=== PATIENT | female | born 1945 | race Caucasian/White ===

== ENCOUNTER 2019-07-14 07:18 | Outpatient (CLI) | payer MEDICARE, BC ==
--- NOTE | 2019-07-14 08:55 | CT ---
CT ABDOMEN AND PELVIS WITHOUT IV CONTRAST: HISTORY: Epigastric pain COMPARISON: 08/13/2014 FINDINGS: Absence of IV contrast reduces the sensitivity of the exam particularly for the evaluation of solid o rgans. Oral contrast was administered. The lung bases are clear. No calcified gallstones are seen. No free air, free fluid or bowel obstruct ion is seen. The small bowel loops are not abnormally dilated. There is fecal material in the colon and rectum. A shunt catheter tubing is again noted. The patient is status post hysterectomy. An abnor mal appendix is not visualized. No calculi are seen in the kidneys, ureters or the urinary bladder. No hydroureteronephrosis is ident ified. There is a 18 mm left renal cyst. Vascular calcifications are present without evidence of aneurysmal dilatation of the abdominal aorta. There are degenerative changes in the spine. There is g rade 1 anterolisthesis of L4 over L5 vertebral bodies. IMPRESSION: No definite evidence of an acute process.
== END 2019-07-14 07:19 | disposition home or self-care (01) ==
LOC: CT 07:18
PROVIDERS: ATTEND Physician Assistant Medical
DX: K59.09 Other constipation (principal); R10.13 Epigastric pain
CPT/HCPCS: 74176

== ENCOUNTER 2019-12-29 12:45 | Outpatient (CLI) | payer MEDICARE, BC ==
--- NOTE | 2019-12-29 14:19 | CT ---
EXAM: CT brain without contrast HISTORY: Headaches. Prior surgery with possible shunt malfunction COMPARISON: MRI brain 11/13/2016 TECHNIQUE: Multiple contiguous axial images were obtained and a CT of the brain without contrast. FINDINGS: Postsurgical changes are seen in the left parietal calvarium. A ventriculostomy catheter is seen with its tip at the prior operative site. Encephalomalacia is seen at the operative site. No reaccumulation of the fluid collection is seen surrounding the shunt. There is no evidence of hydroce phalus, intracranial hemorrhage, or extra-axial fluid collection. The calvarium and overlying soft tissues are unremarkable. The visualized paranasal sinuses and masto id air cells are well aerated. IMPRESSION: Postsurgical changes as above without acute intracranial abnormality.
== END 2019-12-29 12:46 | disposition home or self-care (01) ==
LOC: TBSIIMAG 12:45
PROVIDERS: ATTEND Surgery
DX: T85.09XA Other mechanical complication of ventricular intracranial (communicating) shunt, initial encounter (principal); Z98.890 Other specified postprocedural states
CPT/HCPCS: 70450

== ENCOUNTER 2020-01-18 08:15 | Outpatient (CLI) | payer MEDICARE, BC ==
--- NOTE | 2020-01-18 10:32 | MRI ---
EXAM: Lumbar spine MRI without contrast. HISTORY: Low back pain, leg paresthesia COMPARISON: None FINDINGS: Multiplanar, multisequence MRI examination of the lumbar spine is performed. The conus medullaris region appears unremarkable. Tiny focus of probable type I endplate changes at L5 inferiorly. 2.3 cm circumscribed T2 hyperintense T1 hypointense focus in the left kidney, statistically a cyst. Generalized disc desiccation changes and ligament and facet hypertrophic changes. T12-L1 disc level: Unremarkable. L1-L2 disc level: Mild lateral recess stenosis, slightly worse on the left side. L2-L3 disc level: Mild bilateral recess and foraminal stenosis. L3-L4 disc level: Very mild lateral recess stenosis. L4-L5 disc level: Grade 1 anterolisthesis with associated annular fissure and moderate to severe cent ral canal and lateral recess and bilateral foraminal stenosis. L5-S1 disc level: Small annular fissure with very mild indention of the central thecal sac IMPRESSION: Multilevel variable severity canal, lateral recess, and foraminal stenosis, most marked, Grade 1 ante rolisthesis of L4-L5 with associated stenosis.
--- NOTE | 2020-01-18 11:17 | MRI ---
MRI cervical spine noncontrast: DATE: 01/18/2020 HISTORY: 74-year-old female with: R 26.89, balance problems R51, headache M 54.2, neck pain COMPARISON: 09/23/2016 FINDINGS: Vertebral body heights are maintained. No high-grade bone marrow signal abnormality. C1-2: No central stenosis. C2-3: Disc space maintained. Broad-based disc-osteophyte complex, left slightly greater than right. T hickened ligamentum flavum encroaches upon dorsal aspect of spinal canal, almost abutting the spinal cord, new since prior MRI. Mild central spinal canal stenosis. Mild right neural foraminal brenda nosis. Moderate left neural foraminal stenosis, new since prior MRI. Moderate right facet DJD. Moderate to severe left neural foraminal stenosis with facet osteophytes causing the left neural fora tamra stenosis. C3-4: Disc space maintained. No significant central stenosis. Ankylosis of right facet joint, unchang ed. Small bilateral uncinate process osteophytes. Mild bilateral neural foraminal stenosis. Mild left facet DJD. C4-5: Right facet joint incompletely imaged on sagittal sequences. Uncertain whether there is ankylos is or DJD there. Slight grade 1 anterolisthesis of C4 on C5. Essentially normal left facet joint. Small central focal disc-osteophyte complex slightly indents the ventral surface of spinal cord. Mild central stenosis. Small bilateral uncinate process osteophytes. Mild right neural foraminal stenosis. No left neural foraminal stenosis. Disc space maintained. C5-6: Endplate irregularity. At least mild disc space narrowing. Prominent broad-based disc-osteophyt e complex indents the ventral surface of spinal cord. Mildly thickened ligamentum flavum abuts the dorsal surface of spinal cord. Overall result is somewhat severe central spinal canal stenosis. Moder ate size bilateral uncinate process osteophytes causing severe right neural foraminal stenosis and moderate to severe left neural foraminal stenosis. Essentially normal facet joints. C6-7: Mild disc space narrowing. Broad-based disc/osteophyte complex abuts the ventral surface of spi nal cord. Thickened ligamentum flavum abuts the dorsal surface of spinal cord. Moderate to severe central spinal canal stenosis. Moderate size bilateral uncinate process osteophytes. Moderate to fabian re right neural foraminal stenosis. Mild left neural foraminal stenosis. C7-T1: Disc space maintained. No central or neural foraminal stenosis. No interval change in the size of the syrinx centered at T1 level with diameter of approximately 3 mm , tapering superiorly up to the level of C6-7, and inferiorly down to the T1-2 level. Not significantly changed. IMPRESSION: 1.) Cervical spondylosis, with high-grade central spinal canal stenosis with chronic mild cord imping ement at several levels, and several levels of high-grade neural foraminal stenosis, including severe. 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
--- NOTE | 2020-01-18 11:24 | RAD ---
EXAM: Lumbar spine 4 views including flexion and extension standing views. HISTORY: Low back pain, leg paresthesia, balance problems COMPARISON: 06/28/2015 FINDINGS: Bony demineralization. Postoperative changes at L4 and L5. A tube overlies the pelvis. This is stable from prior study. No evidence for acute fracture or dislocation involving the visualized spine. There are disc osteophytosis and facet arthrosis changes. Mild dextro scoliosis. Grade 1/2 anterolisthesis of L4 and L5 showing worsening with flexion relative to extension evidence for some instability. As much worse than prior exam. No evidence for a bone lesion. IMPRESSION: Spondylosis. Grade 1/2 anterolisthesis of L4 and L5 with worsening in flexion compared to extension evidence for instability. Postoperative changes at L4 and L5.
--- NOTE | 2020-01-18 11:30 | RAD ---
Exam: Cervical spine 5 views including flexion and extension lateral views: HISTORY: Headache, arachnoid cyst FINDINGS: The upper C2 odontoid and C1 are partially obscured on the AP open mouth views. C7-T1 is partially ob scured on the lateral views. There is diffuse bony demineralization. Extensive disc osteophytosis at C5-C6 and C6-C7 with facet arthrosis. No prevertebral soft tissue swelling. No evidence for abnorm al translation between flexion and extension. IMPRESSION: Extensive spondylosis. Bony demineralization. No abnormal translation between flexion and extension.
--- NOTE | 2020-01-18 11:32 | MRI ---
MRI thoracic spine noncontrast: DATE: 01/18/2020 HISTORY: 74-year-old female with ICD-10: R 26.89, balance problem R 20.2 leg paresthesia COMPARISON: 11/13/2016 FINDINGS: Again noted is the syrinx centered at T1, extending into the lower cervical spine superiorly, and tap ering down to the T2 level. The size of the syrinx has not significant changed. It is best visualized on the cervical spine MRI. The rest of the thoracic spinal cord is normal in size and sign al. There is mild and mild to moderate disc space narrowing at multiple levels, mostly in the midthoracic spine, where there are small, shallow disc-osteophyte complexes that encroach upon the ve ntral aspect of the spinal canal. These include central and right paracentral-lateral cord abutment at T6-7, central and bilateral paracentral, left greater than right, cord abutment at T8-9. Despite t hese, there is no high-grade central spinal canal stenosis at any level. No severe neural foraminal stenosis at any level. Slightly exaggerated kyphosis. No major bone marrow signal abnormality. IMPRESSION: 1. Mild syringohydromyelia in upper thoracic spine extending short distances rostrally into the lower cervical spine. Unchanged. 2. Mild thoracic spondylosis. 3. No major interval change.
== END 2020-01-18 08:16 | disposition home or self-care (01) ==
LOC: MRI 08:15
PROVIDERS: ATTEND Surgery
DX: M54.5 Low back pain (principal); R26.89 Other abnormalities of gait and mobility; R20.2 Paresthesia of skin; M54.2 Cervicalgia; G93.0 Cerebral cysts; M47.812 Spondylosis without myelopathy or radiculopathy, cervical region; M47.814 Spondylosis without myelopathy or radiculopathy, thoracic region; M48.02 Spinal stenosis, cervical region; M48.061 Spinal stenosis, lumbar region without neurogenic claudication; Z98.890 Other specified postprocedural states
CPT/HCPCS: 72050; 72120; 72141; 72146; 72148

== ENCOUNTER 2020-01-22 16:50 | Emergency (ER) | payer MEDICARE, BC ==
[2020-01-22] MEDS ORDERED: Tobramycin/dex OPTH 2.5 ML BOT ONE (18:29)
[2020-01-22] MEDS ORDERED: Tobramycin Sulfate 0.3% Ophth Susp 5 ml Bottle ONE (18:31)
== END 2020-01-22 18:46 | disposition home or self-care (01) ==
LOC: ERS 16:50
DX: H10.9 Unspecified conjunctivitis (principal); E03.9 Hypothyroidism, unspecified; G20 Parkinson's disease
CPT/HCPCS: 99282

== ENCOUNTER 2020-04-11 11:27 | Outpatient (CLI) | payer MEDICARE, BC ==
--- NOTE | 2020-04-11 11:53 | MMO ---
Bilateral MAMMO Bilat Screen [facility]. CLINICAL HISTORY: Patient is 74 years old and is seen for screening. The patient has the following family history of breast cancer: niece, at age 45, malignant (generic). The patient has no personal history of cancer. VIEWS: The views performed were: bilateral craniocaudal with tomosynthesis and bilateral mediolateral oblique with tomosynthesis. FILMS COMPARED: The present examination has been compared to prior imaging studies performed at [facility] on 03/06/2017, 03/09/2018 and 03/15/2019, and at [facility] on 03/04/2016. This study has been interpreted with the assistance of computer-aided detection. MAMMOGRAM FINDINGS: There are scattered fibroglandular densities. There are stable benign appearing calcifications seen in both breasts. There are no suspicious masses, suspicious calcifications, or new areas of architectural distortion. IMPRESSION: THERE IS NO MAMMOGRAPHIC EVIDENCE OF MALIGNANCY. A ROUTINE FOLLOW-UP MAMMOGRAM IN 1 YEAR IS RECOMMENDED. THE RESULTS OF THIS EXAM WERE SENT TO THE PATIENT. ACR BI-RADS Category 2 - Benign finding MAMMOGRAPHY NOTE: 1. A negative mammogram report should not delay a biopsy if a dominant of clinically suspicious mass is present. 2. Approximately 10% to 15% of breast cancers are not detected by mammography. 3. Adenosis and dense breasts may obscure an underlying neoplasm. Reported by: THIERRY JOE MD Electonically Signed: [id number]
== END 2020-04-11 11:28 | disposition home or self-care (01) ==
LOC: BICMAMMO 11:27
PROVIDERS: ATTEND Internal Medicine
DX: Z12.31 Encounter for screening mammogram for malignant neoplasm of breast (principal); Z80.3 Family history of malignant neoplasm of breast
CPT/HCPCS: 77063; 77067

== ENCOUNTER 2021-04-02 14:28 | Outpatient (CLI) | payer MEDICARE, BC | END 2021-04-02 14:29 | disposition home or self-care (01) | LOC: BICULT 14:28 | PROVIDERS: ATTEND Psychiatry & Neurology Neurology | DX: M79.605 Pain in left leg (principal); G20 Parkinson's disease; G40.209 Localization-related (focal) (partial) symptomatic epilepsy and epileptic syndromes with complex partial seizures, not intractable, without status epilepticus; G25.81 Restless legs syndrome ==

== ENCOUNTER 2021-04-12 12:34 | Outpatient (CLI) | payer MEDICARE, BC | END 2021-04-12 12:35 | disposition home or self-care (01) | LOC: BICMAMMO 12:34 | PROVIDERS: ATTEND Internal Medicine | DX: Z12.31 Encounter for screening mammogram for malignant neoplasm of breast (principal); Z80.3 Family history of malignant neoplasm of breast | CPT/HCPCS: 77063; 77067 ==

== ENCOUNTER 2021-05-14 07:33 | Emergency (ER) | payer MEDICARE, BC | END 2021-05-14 08:55 | disposition home or self-care (01) | LOC: ERS 07:33 | DX: M25.551 Pain in right hip (principal); R60.0 Localized edema; M54.9 Dorsalgia, unspecified; R29.898 Other symptoms and signs involving the musculoskeletal system; G20 Parkinson's disease; E03.9 Hypothyroidism, unspecified; Z87.442 Personal history of urinary calculi; Z79.899 Other long term (current) drug therapy; W18.30XA Fall on same level, unspecified, initial encounter ==

== ENCOUNTER 2021-09-14 18:17 | Observation (INO) | payer MEDICARE, BC ==
[2021-09-14 19:02] LABS: #Eosinphils 0.1 thou/uL (0.0-0.7); #Monocytes 0.4 thou/uL (0.11-0.59); #Neutrophils 5.3 thou/uL (1.40-6.50); %Basophils 0.5 % (0.0-1.0); %Eosinophils 1.9 % (0.0-10.0); %Monocytes 5.5 % (0.0-10.0); %Neutrophils 78.3 % (42.0-75.0); Hemoglobin 10.4 g/dL (12.0-16.0); Mean Corpuscular HGB CONC 34.9 g/dL (32.0-36.0); Mean Corpuscular Hemoglobin 34.5 pg (27.0-31.0); Mean Corpuscular Volume 98.8 fL (78.0-98.0); Mean Platelet Volume 7.9 fL (7.4-10.4); Platelet Count 181 thou/uL (130-400); RBC Distribution Width 10.7 % (11.5-14.5); Red Blood Cell (RBC) Count 3.03 mill/uL (4.20-5.40); White Blood Cell (WBC) Count 6.8 thou/uL (4.8-10.8)
[2021-09-14 19:24] LABS: ALT (SGPT) 14 U/L (8-55); AST (SGOT) 44 U/L (5-34); Albumin 4.4 g/dL (3.4-4.8); Alkaline Phosphatase 83 U/L (40-110); Anion Gap 15 mmol/L (10-20); BUN (Urea Nitrogen) 77 mg/dL (9.8-20.1); Bilirubin, Total 0.7 mg/dL (0.2-1.2); Calc. Creatinine Clearance 0 mL/min (70-130); Calcium 9.6 mg/dL (7.8-10.44); Carbon Dioxide 32 mmol/L (23-31); Chloride 90 mmol/L (98-107); Globulin 2.2 g/dL (2.4-3.5); Glucose 125 mg/dL (83-110); Potassium 3.1 mmol/L (3.5-5.1); Protein, Total 6.6 g/dL (5.8-8.1); Sodium 134 mmol/L (136-145)
[2021-09-14 22:39] LABS: Troponin I 0.015 ng/mL (< 0.028)
[2021-09-14 23:44] VITALS: BMI 22.7
[2021-09-15] MEDS ORDERED: Ondansetron ODT 4 MG TAB SL PRN (00:15)
[2021-09-15] MEDS ORDERED: Acetaminophen 325 MG TAB PO PRN (00:15)
[2021-09-15] MEDS ORDERED: Ondansetron PF 4 MG/2 ML Vial IVP PRN (00:15)
[2021-09-15 01:47] LABS: Troponin I 0.018 ng/mL (< 0.028)
[2021-09-15] MEDS ORDERED: Aspirin 325 MG TAB PO SCH (01:47)
[2021-09-15] MEDS ORDERED: Ondansetron ODT 4 MG TAB PO PRN (01:49)
[2021-09-15] MEDS ORDERED: Electrolyte Replacement Protocol 1 EACH FS SCH ×2 (02:00)
[2021-09-15] MEDS: Potassium Chloride 20 MEQ TAB PO SCH ×2 (02:24→04:05)
[2021-09-15] MEDS ORDERED: cefTRIAXone\\ROCEPHIN 1 GM in Sodium Chloride 0.9% 100 ML IVPB SCH ×2 (03:00→05:00)
[2021-09-15] MEDS: Nitroglycerin 2% Ointment 1 INCH/1 GM Packet TOP SCH ×2 (05:21→13:04)
[2021-09-15] MEDS ORDERED: Furosemide 40 MG/4 ML VIAL SLOW IVP SCH (06:00)
[2021-09-15 06:05] LABS: #Eosinphils 0.2 thou/uL (0.0-0.7); #Lymphocytes 1.3 thou/uL (1.20-3.40); #Monocytes 0.4 thou/uL (0.11-0.59); #Neutrophils 2.7 thou/uL (1.40-6.50); %Basophils 0.9 % (0.0-1.0); %Eosinophils 4.1 % (0.0-10.0); %Monocytes 7.7 % (0.0-10.0); %Neutrophils 58.3 % (42.0-75.0); Hemoglobin 10.2 g/dL (12.0-16.0); Mean Corpuscular HGB CONC 35.1 g/dL (32.0-36.0); Mean Corpuscular Hemoglobin 34.5 pg (27.0-31.0); Mean Corpuscular Volume 98.3 fL (78.0-98.0); Mean Platelet Volume 8.4 fL (7.4-10.4); Platelet Count 174 thou/uL (130-400); RBC Distribution Width 10.6 % (11.5-14.5); Red Blood Cell (RBC) Count 2.95 mill/uL (4.20-5.40); White Blood Cell (WBC) Count 4.6 thou/uL (4.8-10.8)
[2021-09-15 06:27] LABS: Anion Gap 15 mmol/L (10-20); BUN (Urea Nitrogen) 72 mg/dL (9.8-20.1); Calc. Creatinine Clearance 21 mL/min (70-130); Calcium 9.8 mg/dL (7.8-10.44); Carbon Dioxide 32 mmol/L (23-31); Chloride 93 mmol/L (98-107); Glucose 90 mg/dL (83-110); Potassium 3.7 mmol/L (3.5-5.1); Sodium 136 mmol/L (136-145)
[2021-09-15] MEDS: Furosemide 40 MG/4 ML VIAL SLOW IVP SCH ×2 (06:38→12:59)
[2021-09-15] MEDS ORDERED: Aspirin Chewable 81 MG TAB PO SCH (09:00)
[2021-09-15] MEDS ORDERED: Enoxaparin Sodium 30 MG/0.3 ML SYRINGE SC SCH (09:00)
[2021-09-15 16:46] VITALS: BP 106/51; TEMP 98.8
[2021-09-15 18:57] LABS: SARS-CoV-2 PCR by NAA Not Detected (NotDetected)
[2021-09-15] MEDS ORDERED: Zonisamide 100 MG CAP PO SCH (21:00)
== END 2021-09-15 16:49 | disposition home or self-care (01) ==
LOC: ERS 18:17 → 2SW 21:20
PROVIDERS: ADMIT Student in an Organized Health Care Education/Training Program; ATTEND Internal Medicine
DX: R07.89 Other chest pain (principal); I50.33 Acute on chronic diastolic (congestive) heart failure; I08.3 Combined rheumatic disorders of mitral, aortic and tricuspid valves; G40.909 Epilepsy, unspecified, not intractable, without status epilepticus; L53.9 Erythematous condition, unspecified; E03.9 Hypothyroidism, unspecified; G20 Parkinson's disease; E05.00 Thyrotoxicosis with diffuse goiter without thyrotoxic crisis or storm; Z20.822 Contact with and (suspected) exposure to COVID-19; Z95.5 Presence of coronary angioplasty implant and graft; Z88.1 Allergy status to other antibiotic agents; Z88.0 Allergy status to penicillin; Z88.2 Allergy status to sulfonamides; Z88.5 Allergy status to narcotic agent; Z88.8 Allergy status to other drugs, medicaments and biological substances; Z79.899 Other long term (current) drug therapy; Z87.442 Personal history of urinary calculi
CPT/HCPCS: 71045; 80048; 80053; 83880; 84484 ×3; 85025 ×2; 87040; 93005; 93306; 93971; 96372; 96374; 96375; 96376; 99285; G0378 ×3; U0003; U0005; 36415; J0696; J1650; J1940; J3490

== ENCOUNTER 2021-09-17 14:35 | Emergency (ER) | payer MEDICARE, BC ==
[2021-09-17 15:12] LABS: #Eosinphils 0.3 thou/uL (0.0-0.7); #Lymphocytes 1.4 thou/uL (1.20-3.40); #Monocytes 0.4 thou/uL (0.11-0.59); #Neutrophils 4.4 thou/uL (1.40-6.50); %Basophils 0.1 % (0.0-1.0); %Eosinophils 5.1 % (0.0-10.0); %Lymphocytes 22.1 % (21.0-51.0); %Monocytes 5.3 % (0.0-10.0); %Neutrophils 67.4 % (42.0-75.0); Hemoglobin 10.6 g/dL (12.0-16.0); Mean Corpuscular HGB CONC 34.5 g/dL (32.0-36.0); Mean Corpuscular Volume 98.7 fL (78.0-98.0); Mean Platelet Volume 8.2 fL (7.4-10.4); Platelet Count 212 thou/uL (130-400); RBC Distribution Width 10.8 % (11.5-14.5); Red Blood Cell (RBC) Count 3.11 mill/uL (4.20-5.40); White Blood Cell (WBC) Count 6.5 thou/uL (4.8-10.8)
[2021-09-17 15:23] LABS: ALT (SGPT) 8 U/L (8-55); AST (SGOT) 45 U/L (5-34); Albumin 4.3 g/dL (3.4-4.8); Alkaline Phosphatase 84 U/L (40-110); Anion Gap 14 mmol/L (10-20); BUN (Urea Nitrogen) 50 mg/dL (9.8-20.1); Bilirubin, Total 0.4 mg/dL (0.2-1.2); Calc. Creatinine Clearance 0 mL/min (70-130); Calcium 9.7 mg/dL (7.8-10.44); Carbon Dioxide 32 mmol/L (23-31); Chloride 94 mmol/L (98-107); Globulin 2.2 g/dL (2.4-3.5); Glucose 123 mg/dL (83-110); Potassium 3.4 mmol/L (3.5-5.1); Protein, Total 6.5 g/dL (5.8-8.1); Sodium 137 mmol/L (136-145)
== END 2021-09-17 21:38 | disposition home or self-care (01) ==
LOC: ERS 14:35
DX: R07.89 Other chest pain (principal); N20.0 Calculus of kidney; E03.9 Hypothyroidism, unspecified; G20 Parkinson's disease; E05.00 Thyrotoxicosis with diffuse goiter without thyrotoxic crisis or storm
CPT/HCPCS: 36415; 71045; 74176; 80053; 83690; 84484; 85025; 93005; 94760

== ENCOUNTER 2022-02-27 09:43 | Outpatient (CLI) | payer MEDICARE, BC | END 2022-02-27 09:44 | disposition home or self-care (01) | LOC: TBSIIMAG 09:43 | PROVIDERS: ATTEND Surgery | DX: M47.12 Other spondylosis with myelopathy, cervical region (principal); M48.02 Spinal stenosis, cervical region | CPT/HCPCS: 72050; 72141 ==

== ENCOUNTER 2022-04-11 09:39 | Outpatient (CLI) | payer MEDICARE, BC ==
[2022-04-11 10:57] LABS: Hemoglobin 11.2 g/dL (12.0-15.5); Mean Corpuscular HGB CONC 32.7 g/dL (32.0-36.0); Mean Corpuscular Hemoglobin 33.5 pg (27.0-33.0); Mean Corpuscular Volume 102.4 fl (81.6-98.3); Mean Platelet Volume 9.8 fl (7.4-10.4); Platelet Count 229 10x3/uL (150-450); RBC Distribution Width 12.4 % (11.5-14.5); Red Blood Cell (RBC) Count 3.34 10x6/uL (3.90-5.03); White Blood Cell (WBC) Count 4.7 10x3/uL (3.5-10.5)
[2022-04-11 11:14] LABS: Anion Gap 15 mmol/L (10-20); BUN (Urea Nitrogen) 20 mg/dL (9.8-20.1); Calc. Creatinine Clearance 0 mL/min (70-130); Calcium 9.8 mg/dL (7.8-10.44); Carbon Dioxide 23 mmol/L (23-31); Chloride 108 mmol/L (98-107); Glucose 93 mg/dL (83-110); INR-International Normal Ratio 0.9; PTT 26.9 sec (22.0-33.0); Prothrombin Time 10.3 sec (9.5-12.1); Sodium 142 mmol/L (136-145)
[2022-04-11 18:14] LABS: SARS-CoV-2 PCR by NAA Not Detected (NotDetected)
== END 2022-04-11 09:40 | disposition home or self-care (01) ==
LOC: LABBT 09:39
PROVIDERS: ATTEND Surgery
DX: Z01.818 Encounter for other preprocedural examination (principal); M54.12 Radiculopathy, cervical region; M48.02 Spinal stenosis, cervical region; Z20.822 Contact with and (suspected) exposure to COVID-19
CPT/HCPCS: 80048; 85027; 85610; 85730; 86850; 86900; 86901; 93005; U0003; U0005; 93010

== ENCOUNTER 2022-04-16 05:35 | Inpatient (IN) | payer MEDICARE, BC ==
[2022-04-11 10:57] LABS: Hemoglobin 11.2 g/dL (12.0-15.5); Mean Corpuscular HGB CONC 32.7 g/dL (32.0-36.0); Mean Corpuscular Hemoglobin 33.5 pg (27.0-33.0); Mean Corpuscular Volume 102.4 fl (81.6-98.3); Mean Platelet Volume 9.8 fl (7.4-10.4); Platelet Count 229 10x3/uL (150-450); RBC Distribution Width 12.4 % (11.5-14.5); Red Blood Cell (RBC) Count 3.34 10x6/uL (3.90-5.03); White Blood Cell (WBC) Count 4.7 10x3/uL (3.5-10.5)
[2022-04-11 11:14] LABS: Anion Gap 15 mmol/L (10-20); BUN (Urea Nitrogen) 20 mg/dL (9.8-20.1); Calc. Creatinine Clearance 0 mL/min (70-130); Calcium 9.8 mg/dL (7.8-10.44); Carbon Dioxide 23 mmol/L (23-31); Chloride 108 mmol/L (98-107); Glucose 93 mg/dL (83-110); INR-International Normal Ratio 0.9; PTT 26.9 sec (22.0-33.0); Prothrombin Time 10.3 sec (9.5-12.1); Sodium 142 mmol/L (136-145)
[2022-04-16] MEDS ORDERED: Thrombin 5000 UNITS/5 ML VIAL ONE (06:30)
[2022-04-16] MEDS ORDERED: fentaNYL Citrate/PF 100 MCG/2 ML SYRINGE ONE (06:46)
[2022-04-16] MEDS ORDERED: Levofloxacin 500 mg/D5W 100 ml Premix Bag ONE (07:20)
[2022-04-16] MEDS ORDERED: Acetaminophen 325 MG TAB PO PRN (07:23)
[2022-04-16] MEDS ORDERED: Ondansetron PF 4 MG/2 ML Vial IVP PRN (07:23)
[2022-04-16] MEDS ORDERED: HYDROcodone/Acetaminophen 7.5/325 mg Tablet PO PRN (07:23)
[2022-04-16] MEDS ORDERED: tiZANidine HCl 4 MG TAB PO PRN (07:25)
[2022-04-16] MEDS ORDERED: Clindamycin/D5W 900 mg/50 ml Premix Bag ONE (07:26)
[2022-04-16] MEDS ORDERED: Lidocaine 1% PF 5 ML VIAL ONE (07:43)
[2022-04-16] MEDS ORDERED: PROPOFOL 200 MG/20 ML VIAL ONE (07:43)
[2022-04-16] MEDS ORDERED: Ondansetron PF 4 MG/2 ML Vial ONE (07:43)
[2022-04-16] MEDS ORDERED: Glycopyrrolate 0.2 MG/ML 5 ML SYRINGE ONE (07:43)
[2022-04-16] MEDS ORDERED: Rocuronium Bromide 10 MG/ML (10ML VIAL) ONE (07:43)
[2022-04-16] MEDS ORDERED: Dexamethasone 20 MG/5 ML VIAL ONE (07:43)
[2022-04-16] MEDS: Furosemide 40 MG TAB PO SCH (11:55)
[2022-04-16] MEDS: Losartan 25 MG TAB PO SCH (11:55)
[2022-04-16] MEDS: Loratadine 10 MG TAB PO SCH (11:55)
[2022-04-16] MEDS: Calcium Carbonate 500 MG TAB PO SCH ×2 (11:55→21:33)
[2022-04-16] MEDS: Ezetimibe 10 MG TAB PO SCH (11:55)
[2022-04-16] MEDS: Carbidopa/Levodopa 25-100 mg Tablet PO SCH ×2 (11:55→12:29)
[2022-04-16] MEDS: Pramipexole Di-HCl 0.25 MG TAB PO SCH ×3 (11:56→20:22)
[2022-04-16] MEDS: Sodium Chloride 0.9% 1,000 ML IV SCH ×2 (12:29→21:34)
[2022-04-16] MEDS: Morphine 2 MG/ML VIAL SLOW IVP PRN (12:56)
[2022-04-16] MEDS ORDERED: Chloraseptic Spray 180 ml Bottle PO PRN (14:08)
[2022-04-16] MEDS ORDERED: Cepastat Lozenges 1 LOZ PO PRN (14:08)
[2022-04-16] MEDS: Clindamycin/D5W 900 MG in Premix Bag 1 BAG IVPB SCH (16:21)
[2022-04-16] MEDS: traMADol HCl 50 MG TAB PO PRN (20:22)
[2022-04-16] MEDS: Atorvastatin Calcium 20 MG TAB PO SCH (20:22)
[2022-04-16] MEDS: Vit A,C & E/Lutein/Minerals Tablet PO SCH (21:31)
[2022-04-16] MEDS: Zonisamide 100 MG CAP PO SCH (21:31)
[2022-04-17] MEDS: Clindamycin/D5W 900 MG in Premix Bag 1 BAG IVPB SCH ×3 (00:10→18:05)
[2022-04-17] MEDS: traMADol HCl 50 MG TAB PO PRN (03:40)
[2022-04-17 05:02] LABS: #Lymphocytes 0.9 thou/uL (1.20-3.40); #Monocytes 0.6 thou/uL (0.11-0.59); #Neutrophils 5.9 thou/uL (1.40-6.50); %Basophils 0.2 % (0.0-1.0); %Eosinophils 0.1 % (0.0-10.0); %Lymphocytes 11.8 % (21.0-51.0); %Monocytes 7.9 % (0.0-10.0); Hemoglobin 10.2 g/dL (12.0-16.0); Mean Corpuscular HGB CONC 32.4 g/dL (32.0-36.0); Mean Corpuscular Hemoglobin 34.1 pg (27.0-31.0); Mean Platelet Volume 7.2 fL (7.4-10.4); Platelet Count 202 thou/uL (130-400); RBC Distribution Width 11.5 % (11.5-14.5); Red Blood Cell (RBC) Count 2.98 mill/uL (4.20-5.40); White Blood Cell (WBC) Count 7.3 thou/uL (4.8-10.8)
[2022-04-17] MEDS: Levothyroxine Sodium 75 MCG TAB PO SCH (05:03)
[2022-04-17 05:30] LABS: Anion Gap 8 mmol/L (10-20); BUN (Urea Nitrogen) 18 mg/dL (9.8-20.1); Calc. Creatinine Clearance 42 mL/min (70-130); Calcium 8.4 mg/dL (7.8-10.44); Carbon Dioxide 24 mmol/L (23-31); Chloride 109 mmol/L (98-107); Glucose 107 mg/dL (83-110); Potassium 3.9 mmol/L (3.5-5.1); Sodium 137 mmol/L (136-145)
[2022-04-17] MEDS: Calcium Carbonate 500 MG TAB PO SCH ×2 (08:27→20:28)
[2022-04-17] MEDS: Carbidopa/Levodopa 25-100 mg Tablet PO SCH ×2 (08:28→12:07)
[2022-04-17] MEDS: Ezetimibe 10 MG TAB PO SCH (08:33)
[2022-04-17] MEDS: Loratadine 10 MG TAB PO SCH (08:34)
[2022-04-17] MEDS: Losartan 25 MG TAB PO SCH (08:34)
[2022-04-17] MEDS: Furosemide 40 MG TAB PO SCH (08:34)
[2022-04-17] MEDS: Pramipexole Di-HCl 0.25 MG TAB PO SCH ×3 (08:35→20:28)
[2022-04-17] MEDS ORDERED: Iopamidol 370 76% 100 ML VIAL ONE (14:35)
[2022-04-17] MEDS ORDERED: Fleet Enema 133 ML BOT PR PRN (15:20)
[2022-04-17] MEDS ORDERED: Bisacodyl 10 MG SUPP PR PRN (15:20)
[2022-04-17] MEDS ORDERED: Enoxaparin Sodium 40 MG/0.4 ML SYRINGE SC SCH (15:30)
[2022-04-17] MEDS: Sodium Chloride 0.9% 1,000 ML IV SCH (15:46)
[2022-04-17] MEDS: Atorvastatin Calcium 20 MG TAB PO SCH (20:28)
[2022-04-17] MEDS: Zonisamide 100 MG CAP PO SCH (20:31)
[2022-04-17] MEDS: Vit A,C & E/Lutein/Minerals Tablet PO SCH (20:31)
[2022-04-17 20:39] LABS: Bacteria/HPF None Seen HPF (None Seen); Bilirubin Negative (Negative); Blood, Urine 3+ (Negative); Clarity Turbid (Clear); Glucose, Urine (Dipstick) Normal (Negative); Ketone, Urine Negative (Negative); Leukocyte 250 Leu/uL (Negative); Nitrite Negative (Negative); Protein, Urine (Dipstick) 30 mg/dL (Neg-Trace); RBC/HPF Greater than 50 HPF (0-3); Specific Gravity, Urine 1.038 (1.002-1.036); Squamous Epithelial None Seen HPF (0-3); Urobilinogen Normal mg/dL (Less than 2)
[2022-04-17 20:42] LABS: Urine Culture Reflex Yes Yes
[2022-04-18] MEDS: Clindamycin/D5W 900 MG in Premix Bag 1 BAG IVPB SCH ×3 (00:06→16:26)
[2022-04-18] MEDS: Sodium Chloride 0.9% 1,000 ML IV SCH ×3 (00:06→20:48)
[2022-04-18] MEDS: traMADol HCl 50 MG TAB PO PRN ×2 (05:28→21:42)
[2022-04-18] MEDS: Levothyroxine Sodium 75 MCG TAB PO SCH (05:28)
[2022-04-18] MEDS: Carbidopa/Levodopa 25-100 mg Tablet PO SCH ×2 (08:16→12:30)
[2022-04-18] MEDS: Pramipexole Di-HCl 0.25 MG TAB PO SCH ×3 (12:14→20:45)
[2022-04-18] MEDS: Calcium Carbonate 500 MG TAB PO SCH ×2 (12:14→21:02)
[2022-04-18] MEDS: Loratadine 10 MG TAB PO SCH (12:15)
[2022-04-18] MEDS: Ezetimibe 10 MG TAB PO SCH (12:15)
[2022-04-18] MEDS: Losartan 25 MG TAB PO SCH (12:15)
[2022-04-18] MEDS: Nitrofurantoin Monohyd/M-Cryst 100 MG CAP PO SCH ×2 (12:31→20:45)
[2022-04-18] MEDS: Furosemide 40 MG TAB PO SCH (12:31)
[2022-04-18] MEDS ORDERED: Iopamidol 370 76% 50 ML VIAL FS ONE (14:02)
[2022-04-18] MEDS: Morphine 2 MG/ML VIAL SLOW IVP PRN (16:10)
[2022-04-18] MEDS: Enoxaparin Sodium 40 MG/0.4 ML SYRINGE SC SCH (18:09)
[2022-04-18] MEDS: Vit A,C & E/Lutein/Minerals Tablet PO SCH (20:45)
[2022-04-18] MEDS: Atorvastatin Calcium 20 MG TAB PO SCH (20:45)
[2022-04-18] MEDS: Zonisamide 100 MG CAP PO SCH (20:45)
[2022-04-19] MEDS: traMADol HCl 50 MG TAB PO PRN ×2 (03:37→11:05)
[2022-04-19] MEDS: Levothyroxine Sodium 75 MCG TAB PO SCH (06:38)
[2022-04-19] MEDS: Calcium Carbonate 500 MG TAB PO SCH (08:24)
[2022-04-19] MEDS: Carbidopa/Levodopa 25-100 mg Tablet PO SCH ×2 (08:25→11:05)
[2022-04-19] MEDS: Enoxaparin Sodium 40 MG/0.4 ML SYRINGE SC SCH (08:25)
[2022-04-19] MEDS: Furosemide 40 MG TAB PO SCH (08:25)
[2022-04-19] MEDS: Ezetimibe 10 MG TAB PO SCH (08:25)
[2022-04-19] MEDS: Nitrofurantoin Monohyd/M-Cryst 100 MG CAP PO SCH (08:26)
[2022-04-19] MEDS: Losartan 25 MG TAB PO SCH (08:26)
[2022-04-19] MEDS: Loratadine 10 MG TAB PO SCH (08:26)
[2022-04-19] MEDS: Pramipexole Di-HCl 0.25 MG TAB PO SCH (08:26)
[2022-04-19 08:33] VITALS: BP 153/74; TEMP 98.6
== END 2022-04-19 14:02 | DRG 472 ==
LOC: SDC 05:35 → MSONC 07:29 → OBSVTOIN 04-17 15:19
PROVIDERS: ADMIT Surgery; ATTEND Surgery
PROC: 0RG2070 Fusion of 2 or more Cervical Vertebral Joints with Autologous Tissue Substitute, Anterior Approach, Anterior Column, Open Approach (ICD-10-PCS; principal; 2022-04-16)
PROC: 0RB30ZZ Excision of Cervical Vertebral Disc, Open Approach (ICD-10-PCS; 2022-04-16)
PROC: 06H03DZ Insertion of Intraluminal Device into Inferior Vena Cava, Percutaneous Approach (ICD-10-PCS; 2022-04-18)
DX: M48.02 Spinal stenosis, cervical region (principal); M47.12 Other spondylosis with myelopathy, cervical region; M50.022 Cervical disc disorder at C5-C6 level with myelopathy; I82.413 Acute embolism and thrombosis of femoral vein, bilateral; Z20.822 Contact with and (suspected) exposure to COVID-19; M50.322 Other cervical disc degeneration at C5-C6 level; M50.122 Cervical disc disorder at C5-C6 level with radiculopathy; G40.909 Epilepsy, unspecified, not intractable, without status epilepticus; G20 Parkinson's disease; E03.9 Hypothyroidism, unspecified; Z88.5 Allergy status to narcotic agent; Z88.1 Allergy status to other antibiotic agents; Z88.8 Allergy status to other drugs, medicaments and biological substances; Z79.899 Other long term (current) drug therapy; Z79.890 Hormone replacement therapy
CPT/HCPCS: 36415; 37191; 71046; 71275; 74177; 76000; 80048; 81001; 85025; 85027; 85610; 85730; 86850; 86900; 86901; 87086; 93005; 93010; 93970; C1713; C1776; C1880; J1100; J1650; J1956; J2270; J2405; J2704; J3490; J7050; Q9967; U0003; U0005

== ENCOUNTER 2022-05-13 12:30 | Emergency (ER) | payer MEDICARE, BC ==
[2022-05-13 13:48] LABS: #Eosinphils 0.1 thou/uL (0.0-0.7); #Lymphocytes 0.9 thou/uL (1.20-3.40); #Monocytes 0.3 thou/uL (0.11-0.59); #Neutrophils 1.8 thou/uL (1.40-6.50); %Basophils 0.9 % (0.0-1.0); %Eosinophils 1.7 % (0.0-10.0); %Lymphocytes 28.5 % (21.0-51.0); %Monocytes 10.4 % (0.0-10.0); %Neutrophils 58.4 % (42.0-75.0); Hemoglobin 10.3 g/dL (12.0-16.0); Mean Corpuscular HGB CONC 33.6 g/dL (32.0-36.0); Mean Corpuscular Hemoglobin 35.1 pg (27.0-31.0); Mean Platelet Volume 7.2 fL (7.4-10.4); Platelet Count 249 thou/uL (130-400); RBC Distribution Width 11.8 % (11.5-14.5); Red Blood Cell (RBC) Count 2.94 mill/uL (4.20-5.40); White Blood Cell (WBC) Count 3.2 thou/uL (4.8-10.8)
[2022-05-13 14:22] LABS: ALT (SGPT) Less than 7 U/L (8-55); AST (SGOT) 28 U/L (5-34); Alkaline Phosphatase 67 U/L (40-110); Anion Gap 14 mmol/L (10-20); BUN (Urea Nitrogen) 14 mg/dL (9.8-20.1); Bilirubin, Total 0.4 mg/dL (0.2-1.2); Calc. Creatinine Clearance 0 mL/min (70-130); Calcium 10.3 mg/dL (7.8-10.44); Carbon Dioxide 26 mmol/L (23-31); Chloride 107 mmol/L (98-107); Globulin 2.5 g/dL (2.4-3.5); Glucose 98 mg/dL (83-110); Potassium 3.5 mmol/L (3.5-5.1); Protein, Total 6.5 g/dL (5.8-8.1); Sodium 143 mmol/L (136-145)
== END 2022-05-13 17:10 | disposition home or self-care (01) ==
LOC: ERS 12:30
DX: I82.413 Acute embolism and thrombosis of femoral vein, bilateral (principal); E03.9 Hypothyroidism, unspecified
CPT/HCPCS: 36415; 80053; 83880; 85025; 93970

== ENCOUNTER 2022-06-10 08:05 | Outpatient (CLI) | payer MEDICARE, BC | END 2022-06-10 08:06 | disposition home or self-care (01) | LOC: TBSIIMAG 08:05 | PROVIDERS: ATTEND Surgery | DX: M54.12 Radiculopathy, cervical region (principal); Z98.1 Arthrodesis status | CPT/HCPCS: 72040 ==

== ENCOUNTER 2022-06-18 13:16 | Outpatient (CLI) | payer MEDICARE, BC | END 2022-06-18 13:17 | disposition home or self-care (01) | LOC: ULT 13:16 | PROVIDERS: ATTEND Thoracic Surgery (Cardiothoracic Vascular Surgery) | DX: I82.402 Acute embolism and thrombosis of unspecified deep veins of left lower extremity (principal); T45.515A Adverse effect of anticoagulants, initial encounter | CPT/HCPCS: 93970 ==

== ENCOUNTER 2022-08-02 13:25 | Outpatient (CLI) | payer MEDICARE, BC | END 2022-08-02 13:26 | disposition home or self-care (01) | LOC: BICMAMMO 13:25 | PROVIDERS: ATTEND Internal Medicine | DX: Z12.31 Encounter for screening mammogram for malignant neoplasm of breast (principal); Z80.3 Family history of malignant neoplasm of breast | CPT/HCPCS: 77063; 77067 ==

== ENCOUNTER 2022-10-08 07:53 | Outpatient (CLI) | payer MEDICARE, BC | END 2022-10-08 07:54 | disposition home or self-care (01) | LOC: TBSIIMAG 07:53 | PROVIDERS: ATTEND Surgery | DX: M48.02 Spinal stenosis, cervical region (principal); M47.812 Spondylosis without myelopathy or radiculopathy, cervical region; Z98.1 Arthrodesis status | CPT/HCPCS: 72040 ==

== ENCOUNTER 2022-11-19 18:45 | Emergency (ER) | payer MEDICARE, BC | END 2022-11-19 20:45 | disposition home or self-care (01) | LOC: ERS 18:45 | DX: S09.90XA Unspecified injury of head, initial encounter (principal); E03.9 Hypothyroidism, unspecified; W19.XXXA Unspecified fall, initial encounter | CPT/HCPCS: 70450; 72125 ==

== ENCOUNTER 2022-11-26 08:13 | Outpatient (CLI) | payer MEDICARE, BC | END 2022-11-26 08:14 | disposition home or self-care (01) | LOC: ULT 08:13 | PROVIDERS: ATTEND Nurse Practitioner Family | DX: R60.0 Localized edema (principal) | CPT/HCPCS: 93970 ==

== ENCOUNTER 2022-12-31 11:10 | Outpatient (CLI) | payer MEDICARE, BC | END 2022-12-31 11:11 | disposition home or self-care (01) | LOC: ULT 11:10 | PROVIDERS: ATTEND Internal Medicine Cardiovascular Disease | DX: M79.662 Pain in left lower leg (principal); M79.661 Pain in right lower leg; R60.0 Localized edema | CPT/HCPCS: 93923 ==

== ENCOUNTER 2023-03-22 04:47 | Emergency (ER) | payer MEDICARE, BC ==
[2023-03-22] MEDS ORDERED: HYDROcodone/Acetaminophen 5/325 mg Tablet ONE ×2 (05:22→07:36)
[2023-03-22 05:32] LABS: #Lymphocytes 0.9 thou/uL (1.20-3.40); #Monocytes 0.4 thou/uL (0.11-0.59); #Neutrophils 3.2 thou/uL (1.40-6.50); %Basophils 0.6 % (0.0-1.0); %Eosinophils 0.7 % (0.0-10.0); %Lymphocytes 19.5 % (21.0-51.0); %Monocytes 8.1 % (0.0-10.0); %Neutrophils 71.2 % (42.0-75.0); Hemoglobin 12.1 g/dL (12.0-16.0); Mean Corpuscular HGB CONC 34.3 g/dL (32.0-36.0); Mean Corpuscular Hemoglobin 34.1 pg (27.0-31.0); Mean Corpuscular Volume 99.6 fl (78.0-98.0); Mean Platelet Volume 7.4 fL (7.4-10.4); Platelet Count 188 10x3/uL (130-400); RBC Distribution Width 11.1 % (11.5-14.5); Red Blood Cell (RBC) Count 3.56 mill/uL (4.20-5.40); White Blood Cell (WBC) Count 4.5 10x3/uL (4.8-10.8)
[2023-03-22 05:56] LABS: ALT (SGPT) 16 U/L (8-55); AST (SGOT) 27 U/L (5-34); Albumin 4.5 g/dL (3.4-4.8); Alkaline Phosphatase 74 U/L (40-110); Anion Gap 12 mmol/L (10-20); BUN (Urea Nitrogen) 19 mg/dL (9.8-20.1); Bilirubin, Total 0.7 mg/dL (0.2-1.2); CK (CPK) 619 U/L (29-168); Calc. Creatinine Clearance 0 mL/min (70-130); Carbon Dioxide 28 mmol/L (23-31); Chloride 104 mmol/L (98-107); Estimated GFR 49; Globulin 2.2 g/dL (2.4-3.5); Glucose 95 mg/dL (83-110); Potassium 3.2 mmol/L (3.5-5.1); Protein, Total 6.7 g/dL (5.8-8.1); Sodium 141 mmol/L (136-145)
[2023-03-22 06:41] LABS: Bacteria/HPF None Seen HPF (None Seen); Bilirubin Negative (Negative); Blood, Urine Trace (Negative); Clarity Turbid (Clear); Glucose, Urine (Dipstick) Normal (Negative); Ketone, Urine Negative (Negative); Leukocyte Negative Leu/uL (Negative); Nitrite Negative (Negative); Protein, Urine (Dipstick) Negative (Neg-Trace); RBC/HPF 0-3 HPF (0-3); Specific Gravity, Urine 1.008 (1.002-1.036); Squamous Epithelial None Seen HPF (0-3); Urobilinogen Normal mg/dL (Less than 2); WBC/HPF 0-3 HPF (0-3); pH, Urine 7.5 (5.0-9.0)
== END 2023-03-22 08:15 | disposition home or self-care (01) ==
LOC: ERS 04:47
DX: L03.116 Cellulitis of left lower limb (principal); D72.819 Decreased white blood cell count, unspecified; E03.9 Hypothyroidism, unspecified; M79.605 Pain in left leg
CPT/HCPCS: 36415; 51701; 70450; 80053; 81003; 81015; 82550; 83605; 83880; 84484; 85025; 85652; 86140; 93005

== ENCOUNTER 2023-05-03 09:12 | Emergency (ER) | payer MEDICARE, BC ==
[2023-05-03] MEDS ORDERED: Acetaminophen 325 MG TAB ONE (10:20)
== END 2023-05-03 12:18 | disposition home or self-care (01) ==
LOC: ERS 09:12
DX: S10.91XA Abrasion of unspecified part of neck, initial encounter (principal); W18.30XA Fall on same level, unspecified, initial encounter
CPT/HCPCS: 70450; 72125

== ENCOUNTER 2023-06-10 15:04 | Emergency (ER) | payer MEDICARE, BC ==
[2023-06-10] MEDS ORDERED: Cephalexin 250 MG CAP ONE (17:23)
== END 2023-06-10 17:29 | disposition home or self-care (01) ==
LOC: ERS 15:04
DX: S50.312A Abrasion of left elbow, initial encounter (principal); S40.012A Contusion of left shoulder, initial encounter; S60.812A Abrasion of left wrist, initial encounter; S09.90XA Unspecified injury of head, initial encounter; X58.XXXA Exposure to other specified factors, initial encounter
CPT/HCPCS: 70450; 72125

== ENCOUNTER 2023-09-04 10:37 | Outpatient (CLI) | payer MEDICARE, BC | END 2023-09-04 10:38 | disposition home or self-care (01) | LOC: BICMAMMO 10:37 | PROVIDERS: ATTEND Family Medicine | DX: Z12.31 Encounter for screening mammogram for malignant neoplasm of breast (principal); Z80.3 Family history of malignant neoplasm of breast | CPT/HCPCS: 77063; 77067 ==

== ENCOUNTER 2023-12-27 07:08 | Emergency (ER) | payer MEDICARE, BC ==
[2023-12-27] MEDS ORDERED: Ibuprofen 200 MG TAB ONE (07:44)
[2023-12-27] MEDS ORDERED: Lidocaine 4% Patch TD SCH (07:45)
[2023-12-27] MEDS ORDERED: Transdermal Patch Removal TOP SCH (19:45)
== END 2023-12-27 10:22 | disposition home or self-care (01) ==
LOC: ERS 07:08
DX: M62.838 Other muscle spasm (principal); E03.9 Hypothyroidism, unspecified; G20.A1 Parkinson's disease without dyskinesia, without mention of fluctuations; Z79.899 Other long term (current) drug therapy

== ENCOUNTER 2023-12-29 07:58 | Emergency (ER) | payer MEDICARE, BC ==
[2023-12-29] MEDS ORDERED: HYDROcodone/Acetaminophen 5/325 mg Tablet ONE (10:45)
== END 2023-12-29 10:50 | disposition home or self-care (01) ==
LOC: ERS 07:58
DX: S42.002A Fracture of unspecified part of left clavicle, initial encounter for closed fracture (principal); G20.A1 Parkinson's disease without dyskinesia, without mention of fluctuations; E03.9 Hypothyroidism, unspecified; W18.30XA Fall on same level, unspecified, initial encounter; Z79.899 Other long term (current) drug therapy
CPT/HCPCS: 72125

== ENCOUNTER 2024-01-28 09:23 | Outpatient (CLI) | payer MEDICARE, BC ==
[2024-01-28] MEDS ORDERED: Iopamidol 370 76% 100 ML VIAL ONE (13:02)
== END 2024-01-28 09:24 | disposition home or self-care (01) ==
LOC: BICCT 09:23
PROVIDERS: ATTEND Family Medicine
DX: N28.1 Cyst of kidney, acquired (principal)
CPT/HCPCS: 74178

== ENCOUNTER 2024-09-28 12:59 | Outpatient (CLI) | payer MEDICARE, BC ==
[~2024-09-28 12:59] MED LIST: Magnevist 469MG/ML 20 ML VIAL ONE
== END 2024-09-28 13:00 | disposition home or self-care (01) ==
LOC: MRI 12:59
PROVIDERS: ATTEND Surgery
DX: R51.9 Headache, unspecified (principal); I67.82 Cerebral ischemia; G93.89 Other specified disorders of brain; I73.9 Peripheral vascular disease, unspecified
CPT/HCPCS: 70553; 76376

== ENCOUNTER 2025-08-10 07:37 | Outpatient (CLI) | payer MEDICARE, BC ==
[2025-08-10] MEDS ORDERED: Iopamidol 370 76% 100 ML VIAL ONE (15:44)
== END 2025-08-10 07:38 | disposition home or self-care (01) ==
LOC: CT 07:37
PROVIDERS: ATTEND Family Medicine
DX: M54.2 Cervicalgia (principal); R51.9 Headache, unspecified; M47.812 Spondylosis without myelopathy or radiculopathy, cervical region; Z98.1 Arthrodesis status
CPT/HCPCS: 36000; 70470; 72125; Q9967